=== PATIENT | male | born 1950 | race American Indian/Alaskan Native ===

== ENCOUNTER 2017-06-24 09:30 | Outpatient (CLI) | payer BC, MEDICARE ==
--- NOTE | 2017-06-24 12:48 | Ultrasound Report ---
ABDOMINAL ULTRASOUND: 06/24/17 09:30:00 CLINICAL: Nausea and vomiting. Dyspepsia. FINDINGS: High-resolution ultrasound demonstrates a normal liver with normal size, contour and overall echogenicity. No liver mass. Normal hepatic vasculature and inferior vena cava. The gallbladder is normally distended with bile sludge in the gallbladder neck. No cholelithiasis. The gallbladder wall measures 3.0mm. Normal bile ducts. The common bile duct measures 4.0 mm diameter. The pancreatic head and proximal body are normal. The distal body and tail of the pancreas are not imaged due to bowel gas. Normal abdominal aorta. A normal spleen measures 8.6 x 3.3 x 4.3cm. Mild increased echogenicity of the kidneys and mild cortical irregularity of the left kidney. Normal non-dilated renal collecting systems and ureters. The right kidney measures 9.8 x 5.2 x 4.2cm. The left kidney measures 9.7 x 5.6 x 4.9cm. No renal mass, cyst or calculus. No ascites or mass. IMPRESSION: 1. No cholelithiasis. 2. Mild increased renal echogenicity suggests possible medical renal disease.
== END 2017-06-24 09:31 | disposition home or self-care (01) ==
LOC: SPVWC 09:30
PROVIDERS: ATTEND Internal Medicine Gastroenterology
DX: K30 Functional dyspepsia (principal); R11.2 Nausea with vomiting, unspecified
CPT/HCPCS: 76700